=== PATIENT | female | born 1935 | race Caucasian/White ===

== ENCOUNTER → 2017-02-03 | Outpatient (CLI) | payer BC, MEDICARE ==
[~2017-02-03] MED LIST: CITRUS CALCIUM200 MG PO; PRAVACHOL20 MG PO; SINGULAIR10 MG PO
== END ==
LOC: MC.RAD 01-08 14:40
DX: Z12.31 Encounter for screening mammogram for malignant neoplasm of breast (principal)

== ENCOUNTER → 2018-05-10 | Outpatient (CLI) | payer MEDICARE, BC | LOC: MC.RAD 10:00 | DX: Z12.31 Encounter for screening mammogram for malignant neoplasm of breast (principal) ==